=== PATIENT | female | born 1990 | race African-American/Black ===

== ENCOUNTER 2017-04-06 19:24 | Emergency (ER) | payer OTHER ==
[~2017-04-06] VITALS: Ht 160 cm; Wt 53.7 kg
[~2017-04-06 19:24] MED LIST: PRENAT PO
[2017-04-06 19:32] VITALS: Ht 160 cm; Wt 53.7 kg
[2017-04-06] MEDS ORDERED: DEXAMETHASONE 10 MG/ML 1 ML INJ IM STA (20:23)
[2017-04-06] MEDS ORDERED: ALBUTEROL 0.083% (NEB) 2.5 MG/3 ML AMP NEB STA (20:23)
[2017-04-06] MEDS ORDERED: IPRATROPIUM (NEB) 0.5 MG/2.5 ML AMP NEB STA (20:23)
--- NOTE | 2017-04-06 20:23 | ERD ---
ER Documentation Chief Complaint Chief Complaint cough x 2 days w/ sob, wheezes HPI cough x 2 day, last night SOB, using albuterol q 1 hr w/o improvement of symptoms. denies Flu like symptoms ROS All systems reviewed and are negative except as per history of present illness. Medications Home Meds Reported Medications Multivit/Min/Fol Ac/Iron/Pren* ( S*) 1 Tab Tab, 1 TAB PO DAILY, TAB 01/31/16 Allergies Allergies: Coded Allergies: No Known Allergy (Unverified , 01/31/16) PMhx/Soc History of Surgery: No (csection) Anesthesia Reaction: No Hx Neurological Disorder: No Hx Respiratory Disorders: Yes (ASTHMA) Hx Cardiac Disorders: No Hx Psychiatric Problems: No Hx Miscellaneous Medical Probl: No Hx Alcohol Use: No Hx Substance Use: Yes (marijuana) Hx Tobacco Use: Yes Smoking Status: Current some day smoker Physical Exam Vitals Vital Signs Date Time Temp Pulse Resp B/P Pulse Ox O2 Delivery O2 Flow Rate FiO2 04/06/17 21:03 86 22 99 21 04/06/17 19:32 99.0 105 20 119/80 99 Physical Exam Const: Well-nourished well-appearing well-hydrated obviously short of breath in no acute distress patient is satting 99% on room air. Head: Eyes: ENT: Neck: Resp: Chest rises and falls symmetrically, wheezing with forced expiration diminished bases, loose nonproductive cough Cardio: Regular rate and rhythm, no murmurs Abd: Soft, non tender, non distended. No epigastric tenderness Skin: Back: Ext: Neur: Awake and alert Psych: Normal Mood and Affect Results 24 hrs Current Medications Medications (Trade) Dose Ordered Sig/Eva Route PRN Reason Start Time Stop Time Status Last Admin Dose Admin Albuterol (Proventil 0.083% (Neb)) 5 mg ONCE STAT NEB 04/06/17 20:23 04/06/17 20:25 DC 04/06/17 20:55 Ipratropium [place] (Atrovent 0.02% (Neb)) 0.5 mg ONCE STAT NEB 04/06/17 20:23 04/06/17 20:25 DC 04/06/17 20:55 Dexamethasone (Decadron) 10 mg ONCE STAT IM 04/06/17 20:23 04/06/17 20:25 DC 04/06/17 20:48 Procedures/MDM This 27-year-old female presents to emergency department for treatment of her asthma, patient reports that she uses albuterol, she has been using up to 1-2 puffs every 2 hours since last night with no improvement of symptoms, patient reports cough, denies any flulike symptoms, nausea vomiting, or chest pain. Emergency room course includes history and physical exam, in [place] evaluation positive for wheezing, patient receives albuterol, Atrovent, hand-held nebulized treatment, 10 mg of dexamethasone intramuscularly, post evaluation improved aeration. Plan to discharge patient home with refill of albuterol, and Pulmicort 2 puffs twice daily follow-up with primary physician in 48 hours. Patient is stable with no new complaints during ER course, clinically there is no current evidence to suggest status asthmaticus, pneumonia, cor pulmonale , acute coronary syndromes, pulmonary embolism or any other emergent condition appearing to require further evaluation or hospitalization. I feel the patient is stable for discharge at this time. I have discussed results, examination findings, the treatment plan with the patient and family present prior to discharge. Indications for emergent reevaluation, side effects of medication were also discussed. All questions were answered. Patient verbalizes understanding and agrees with plan of care. Departure Diagnosis: Primary Impression: Asthma with acute exacerbation Asthma severity: mild Asthma persistence: persistent Qualified Code: J45.31 - Mild persistent asthma with acute exacerbation Condition: Good Patient Instructions: Asthma, Acute (Adult) Additional Instructions: Thank you for for coming to [facility] for your care today. Please ask your nurse or provider if you have questions about your care today and do not leave until all your questions have been answered. Please use any medications given as directed and follow-up with your doctor (or the doctor you were referred to) in the next 2-3 days. If you do not have a primary care doctor you may follow up at the community hospital (listed below). You may also use motrin and tylenol as needed for fever and/or pain unless instructed otherwise by your provider or nurse. Indications for more urgent follow-up have been discussed, but you may return to the Emergency Department at ANY time for any worrisome or worsening symptoms. If you have abdominal pain, please know that no test or exam you received is perfect and you should follow up within 8 hours for continued pain. If you had any imaging studies today, such as an X-Ray or CT Scan, these studies will be reviewed later by a radiologist. You will be called if there are important findings that were not identified today, so make sure the contact information you provided at registration is correct. If you received any narcotic pain control medicine today, such as Vicodin, Morphine or Dilaudid, your coordination and judgment may be affected for a number of hours. Please do not drive or operate heavy machinery, and you may want someone to assist you at home. If you were given a prescription for narcotic medication, be aware that it is very addictive- use sparingly and only if necessary. RYLAND BLUE Apr 06, 2017 20:23
[2017-04-06] MEDS ORDERED: PULM90 INHALATION (21:33)
[2017-04-06] MEDS ORDERED: ALBU18HF INHALATION (21:33)
[2017-04-06 21:58] VITALS: BP 119/80; PULSE 87; RESP 20; TEMP 98.9
== END 2017-04-06 21:59 | disposition home or self-care (01) ==
LOC: FTE 19:24
DX: J45.31 Mild persistent asthma with (acute) exacerbation (principal); F17.210 Nicotine dependence, cigarettes, uncomplicated
CPT/HCPCS: 94664; 96372; J1100; Z7502; Z7610